=== PATIENT | male | born 1955 | race Caucasian/White ===

== ENCOUNTER → 2019-02-28 | Outpatient (CLI) | payer OTHER ==
--- NOTE | 2019-02-28 11:20 | 2DMMODE ---
[facility] [place] [address] 2 D/M-MODE ECHOCARDIOGRAM Name: MALENA WRAY Room #: REG [facility]#: [id number] Admission: 02/28/19 Attend Phys: Julito Purvis MD Discharge: Date of : 53 Report #: [id number] THIS REPORT FOR: //name// APPROVED REPORT Study performed: 02/28/2019 10:07:12 EXAM: Comprehensive 2D, Doppler, and color-flow Echocardiogram Patient Location: Out-Patient Status: routine BSA: 2.04 HR: 61 bpm BP: 134/82 mmHg Rhythm: NSR Other Information Study Quality: Good Indications CAD HX: CAD, HTN, HLP, Stents 2D Dimensions RVDd: 41.67 mm IVSd: 11.99 (7-11mm) LVOT Diam: 20.33 (18-24mm) LVDd: 43.58 mm PWd: 10.75 (7-11mm) Ascending Ao: 34.62 (22-36mm) LVDs: 30.91 (25-40mm) Aortic Root: 35.88 mm Volumes Left Atrial Volume (Systole) Single Plane 4CH: 21.68 mL Single Plane 2CH: 45.28 mL LA ESV Index: 17.00 mL/m2 Aortic Valve AoV Peak Gilson.: 1.70 m/s AO Peak Gr.: 11.62 mmHg LVOT Max P.83 mmHg LVOT Max V: 1.10 m/s MARTÍN Vmax: 2.09 cm2 Mitral Valve E/A Ratio: 0.9 MV Decel. Time: 260.[address] [facility] [address] [place] [address] 2 D/M-MODE ECHOCARDIOGRAM Name: WRAYMALENA Room #: REG CL [facility]#: [id number] Admission: 02/28/19 Attend Phys: Julito Purvis MD Discharge: Date of : 53 Report #: [id number] MV E Max Gilson.: 0.71 m/s MV A Gilson.: 0.80 m/s MV PHT: 75.61 ms IVRT: 83.04 ms Pulmonary Valve PV Peak Gilson.: 1.37 m/s PV Peak Gr.: 7.46 mmHg Pulmonary Vein P Vein S: 0.58 m/s P Vein A: 0.30 m/s P Vein D: 0.68 m/s P Vein A Dur.: 101.5 msec P Vein S/D Ratio: 0.85 Tricuspid Valve TR Peak Gilson.: 2.67 m/s RAP Estimate: 10.00 mmHg TR Peak Gr.: 28.46 mmHg PA Pressure: 38.00 mmHg Left Ventricle The left ventricle is normal size. There is normal LV segmental wall motion. Mild basal septal hypertrophy is present. The left ventricular systolic function is normal. LVEF is 55-60%. Mild diastolic dysfunction is present (impaired relaxation pattern). Right Ventricle The right ventricle is normal size. The right ventricular systolic function is normal. Atria The left atrium size is normal. The right atrium size is normal. Aortic Valve The aortic valve is normal in structure. No aortic regurgitation is present. There is no aortic valvular stenosis. Mitral Valve The mitral valve is normal in structure. Mild mitral regurgitation. No evidence of mitral valve stenosis. Tricuspid Valve The tricuspid valve is normal in structure. Mild tricuspid regurgitation. Estimated PAP is 38mmHg. Pulmonic Valve [facility] [place] [address] 2 D/M-MODE ECHOCARDIOGRAM Name: MALENA WRYA Room #: REG CL [facility].#: [id number] Admission: 02/28/19 Attend Phys: Julito Purvis MD Discharge: Date of : 53 Report #: [id number] The pulmonary valve is normal in structure. Mild pulmonic regurgitation. Great Vessels The aortic root is normal in size. The ascending aorta is normal in size. IVC is normal in size and collapses <50% with inspiration. Pericardium There is no pericardial effusion. <Conclusion> The left ventricle is normal size. The left ventricular systolic function is normal. Mild diastolic dysfunction is present (impaired relaxation pattern). The right ventricle is normal size. The left atrium size is normal. The aortic valve is normal in structure. Mild mitral regurgitation. Mild tricuspid regurgitation. Estimated PAP is 38mmHg. <ELECTRONICALLY SIGNED> By: Julien Ren MD 02/28/19 1119 18 18 Julien Ren MD /INF
== END ==
LOC: CV 09:42
DX: I25.10 Atherosclerotic heart disease of native coronary artery without angina pectoris (principal); I08.8 Other rheumatic multiple valve diseases; I10 Essential (primary) hypertension; E78.5 Hyperlipidemia, unspecified; Z95.5 Presence of coronary angioplasty implant and graft